=== PATIENT | female | born 1985 | race Caucasian/White ===

== ENCOUNTER 2016-11-30 12:43 | Emergency (ER) | payer OTHER ==
[2016-11-30 12:44] VITALS: BMI 29.5
[2016-11-30 13:25] VITALS: O2SAT 99
--- NOTE | 2016-11-30 14:27 | CT ---
PROCEDURE: CT HEAD WITHOUT CONTRAST. HISTORY: tongue numbness COMPARISON: None available. TECHNIQUE: Axial computed tomography images were obtained through the head/brain without intravenous contrast. Radiation dose: Total exam DLP = 819.24 mGy-cm. FINDINGS: HEMORRHAGE: No intracranial hemorrhage. BRAIN: No mass effect or edema. No atrophy or chronic microvascular ischemic changes. VENTRICLES: Unremarkable. No hydrocephalus. CALVARIUM: Unremarkable. PARANASAL SINUSES: Unremarkable as visualized. No significant inflammatory changes. MASTOID AIR CELLS: Unremarkable as visualized. No inflammatory changes. OTHER FINDINGS: None. IMPRESSION: No evidence of acute intracranial hemorrhage territorial infarct mass effect or midline shift.
--- NOTE | 2016-11-30 14:30 | C.PDOC ---
Time Seen by Provider: 11/30/16 13:08 Chief Complaint (Nursing): Upper Extremity Problem/Injury Past Medical History Vital Signs: Last Vital Signs Temp 98.5 F 11/30/16 13:24 Pulse 67 11/30/16 13:24 Resp 18 11/30/16 13:24 BP 116/78 11/30/16 13:24 Pulse Ox 99 11/30/16 13:24 - Medical History PMH: Depression, Gastritis Denies: Chronic Kidney Disease Surgical History: Family History: States: Unknown Family Hx - Social History Hx Alcohol Use: No Hx Substance Use: No - Immunization History Hx Tetanus Toxoid Vaccination: No Hx Influenza Vaccination: No Hx Pneumococcal Vaccination: No ED Course And Treatment O2 Sat by Pulse Oximetry: 99 - CT Scan/US ct head Other Rad Studies (CT/US): Read By Radiologist, Radiology Report Reviewed CT/US Interpretation: Accession No. : [id number]. Patient Name / ID : KAREN GAMBLE / [id number]. Exam Date : 11/30/2016 14:23:32 ( Approved ). Study Comment : Sex / Age : F / 31Y. Creator : Enrrique Noble. Dictator : Enrrique Noble. Agriculture Sales Account Manager : Medical Artist : Enrrique Noble. Approver2 : Report Date : 11/30/2016 14:25:53. My Comment : . PROCEDURE: CT HEAD WITHOUT CONTRAST. HISTORY: tongue numbness. COMPARISON: None available. TECHNIQUE: Axial computed tomography images were obtained through the head/brain without intravenous contrast. Radiation dose: Total exam DLP = 819.24 mGy-cm. FINDINGS: HEMORRHAGE: No intracranial hemorrhage. BRAIN: No mass effect or edema. No atrophy or chronic microvascular ischemic changes. VENTRICLES: Unremarkable. No hydrocephalus. CALVARIUM: Unremarkable. PARANASAL SINUSES: Unremarkable as visualized. No significant inflammatory changes. MASTOID AIR CELLS: Unremarkable as visualized. No inflammatory changes. OTHER FINDINGS: None. IMPRESSION: No evidence of acute intracranial hemorrhage territorial infarct mass effect or midline shift.
--- NOTE | 2016-11-30 14:31 | C.PDOC ---
History Of Present Illness 30-year-old female, presents to the emergency department with complaints of an "electric, shooting" pain to her left arm, shoulder and neck around 10:00 this morning. Patient also c/o numbness to the right side of her tongue for same amount of time. Patient denies facial droop, slurred speech, visual changes, fever, chest pain, shortness of breath, falls/injuries, recent dental procedures , tongue pain, extremity weakness, rash, recent URI. Patient is three-weeks post-. Time Seen by Provider: 11/30/16 13:08 Chief Complaint (Nursing): Upper Extremity Problem/Injury History Per: Patient History/Exam Limitations: no limitations Onset/Duration Of Symptoms: Days Current Symptoms Are (Timing): Still Present Quality: "Pain" Severity: Mild Exacerbating Factor(s): Movement Past Medical History Reviewed: Historical Data, Nursing Documentation, Vital Signs Vital Signs: Last Vital Signs Temp 98.2 F 11/30/16 14:37 Pulse 56 L 11/30/16 14:37 Resp 16 11/30/16 14:37 BP 107/68 11/30/16 14:37 Pulse Ox 99 11/30/16 14:41 - Medical History PMH: No Chronic Diseases, Depression, Gastritis Surgical History: Family History: States: No Known Family Hx - Social History Hx Alcohol Use: No Hx Substance Use: No - Immunization History Hx Tetanus Toxoid Vaccination: No Hx Influenza Vaccination: No Hx Pneumococcal Vaccination: No Review Of Systems Except As Marked, All Systems Reviewed And Found Negative. Constitutional: Negative for: Fever, Chills Cardiovascular: Negative for: Chest Pain, Palpitations Respiratory: Negative for: Cough, Shortness of Breath Gastrointestinal: Negative for: Nausea, Vomiting, Abdominal Pain, Diarrhea Genitourinary: Negative for: Dysuria, Hematuria Musculoskeletal: Positive for: Neck Pain, Shoulder Pain, Arm Pain Skin: Negative for: Rash Neurological: Positive for: Numbness (tongue). Negative for: Weakness, Change in Speech, Confusion, Seizures, Altered Mental Status, Headache, Dizziness Physical Exam - Physical Exam Appears: Well, Non-toxic, No Acute Distress Skin: Warm, Dry, No Rash Head: Atraumatic, Normacephalic Eye(s): bilateral: Normal Inspection, PERRL, EOMI Oral Mucosa: Moist Tongue: Normal Appearing, Other (no swelling, no erythema, no oral lesions.) Lips: Normal Appearing Throat: Normal, No Erythema Neck: Normal ROM, No Midline Cervical Tenderness, Paracervical Tenderness (left sided ), No Step Off Deformity Chest: Symmetrical Cardiovascular: Rhythm Regular Respiratory: Normal Breath Sounds, No Rales, No Rhonchi, No Wheezing Gastrointestinal/Abdominal: Normal Exam, Bowel Sounds, Soft, No Tenderness Extremity: Normal ROM, Capillary Refill (< 2 sec all digits ), No Deformity, Other (left superior/posterior shoulder TTP - along trapezius) Extremity: Bilateral: Normal Color And Temperature, Normal ROM Neurological/Psych: Oriented x3, Normal Speech, Normal Cognition, Normal Cranial Nerves (CN II-XII intact except for mildly decreased sensation( subjective) left tongue), Normal Motor, Normal Sensation, Normal Reflexes, No Dysarthria, No Romberg, Other (normal finger to nose ) Gait: Steady ED Course And Treatment O2 Sat by Pulse Oximetry: 99 (Ra) Pulse Ox Interpretation: Normal - CT Scan/US ct head CT/US Interpretation: Accession No. : [id number]. Patient Name / ID : KAREN GAMBLE / [id number]. Exam Date : 11/30/2016 14:23:32 ( Approved ). Study Comment : Sex / Age : F / 31Y. Creator : Enrrique Noble. Dictator : Enrrique Noble. Underwriting Clerks Supervisor : Trip Rider : Enrrique Noble. Approver2 : Report Date : 11/30/2016 14:25:53. My Comment : . PROCEDURE: CT HEAD WITHOUT CONTRAST. HISTORY: tongue numbness. COMPARISON: None available. TECHNIQUE: Axial computed tomography images were obtained through the head/brain without intravenous contrast. Radiation dose: Total exam DLP = 819.24 mGy-cm. FINDINGS: HEMORRHAGE: No intracranial hemorrhage. BRAIN: No mass effect or edema. No atrophy or chronic microvascular ischemic changes. VENTRICLES: Unremarkable. No hydrocephalus. CALVARIUM: Unremarkable. PARANASAL SINUSES: Unremarkable as visualized. No significant inflammatory changes. MASTOID AIR CELLS: Unremarkable as visualized. No inflammatory changes. OTHER FINDINGS: None. IMPRESSION: No evidence of acute intracranial hemorrhage territorial infarct mass effect or midline shift. Progress Note: CT Head ordered and reviewed. Patient was given PO Flexeril and PO Ibuprofen. Reevaluation Time: 15:45 Reassessment Condition: Improved (On reassessment, patient's pain has improved, and is is well appeairng and states she feels better. Ct head (-) for acute findings, and patient has no other neurological symptoms or risk factors for CVA. She was given Rxs for Motrin, Flexeril and instructed to follow up with neurology within 1 week. She understands she should return to ED if symptoms worsen.) Disposition Counseled Patient/Family Regarding: Studies Performed, Diagnosis, Need For Followup, Rx Given - Disposition Referrals: [facility] at [facility] [Outside] Adolfo Loaiza MD [Staff Provider] - Disposition: HOME/ ROUTINE Disposition Time: 15:45 Condition: STABLE Additional Instructions: SEGUIMIENTO CON NEUROLOGA DENTRO DE 1 SEMANA USE LOS MEDICAMENTOS QUE FRANNY NECESARIOS DEVUELVA A LA ISHAAN DE EMERGENCIA SI LOS SNTOMAS EMPEORARAN FOLLOW UP WITH NEUROLOGY WITHIN 1 WEEK USE MEDICATIONS NEEDED RETURN TO EMERGENCY ROOM IF SYMPTOMS WORSEN Prescriptions: Cyclobenzaprine [Cyclobenzaprine HCl] 10 mg PO BID PRN #12 tab PRN Reason: pain/muscle Ibuprofen [Motrin Tab] 600 mg PO Q6 PRN #20 tab PRN Reason: pain Instructions: Paresthesia (ED), Cervical Radiculopathy (ED) Forms: General Discharge Instructions Print Language: BAHAMIAN - Clinical Impression Clinical Impression: Cervical radiculopathy, Paresthesia of tongue - Scribe Statement The provider has reviewed the documentation as recorded by the Nasra Romano All medical record entries made by the Scribe were at my direction and personally dictated by me. I have reviewed the chart and agree that the record accurately reflects my personal performance of the history, physical exam, medical decision making, and the department course for this patient. I have also personally directed, reviewed, and agree with the discharge instructions and disposition.
[2016-11-30 14:38] VITALS: BP 107/68; PULSE 56; RESP 16; TEMP 98.2
== END 2016-11-30 15:53 | disposition home or self-care (01) ==
LOC: C.ER 12:43
DX: M54.12 Radiculopathy, cervical region (principal); R20.8 Other disturbances of skin sensation